=== PATIENT | male | born 1995 | race Caucasian/White ===

== ENCOUNTER 2018-02-16 16:45 | Emergency (ER) | payer OTHER ==
[~2018-02-16] VITALS: Ht 170.2 cm; Wt 117.0 kg
[2018-02-16 16:49] VITALS: Ht 170.2 cm; Wt 117.0 kg
[2018-02-16 18:06] LABS: BASOPHIL % 0.4 % (0-2); PLATELET COUNT 258 x10^3mcL (130-400); RED CELL DISTRIBUTION WIDTH 13.1 % (11.5-14.5)
[2018-02-16 18:16] LABS: CALCIUM 8.7 mg/dL (8.5-10.1); CARBON DIOXIDE 29.2 mmol/L (21-32); CHLORIDE SERUM 103 mmol/L (98-107); CREATININE SERUM 0.7 mg/dL (0.7-1.3); GFR1 > 60 mL/min; GLUCOSE SERUM 99 mg/dL (74-106); POTASSIUM SERUM 3.6 mmol/L (3.5-5.1); SODIUM SERUM 140 mmol/L (136-145)
[2018-02-16 18:29] LABS: ALKALINE PHOSPHATASE 83 U/L (46-116); ALT/SGPT 84 U/L (16-63); AST/SGOT 29 U/L (15-37); BILIRUBIN TOTAL 0.28 mg/dL (0.20-1.00); T4(THYROXINE) 8.7 ug/dL (4.7-13.3); TOTAL PROTEIN, SERUM 7.7 g/dL (6.4-8.2)
[2018-02-16 18:32] LABS: microscopic required? NO
[2018-02-16 18:51] LABS: UA SPECIFIC GRAVITY >=1.030 (1.005-1.035); urine erythrocyte NEGATIVE (NEGATIVE)
[2018-02-16 18:58] LABS: AMPHETAMINE QUAL UR NONE DETECTED (See below)
[2018-02-16 19:53] VITALS: BP 127/85
== END 2018-02-16 19:53 | disposition home or self-care (01) ==
LOC: ED 16:45
PROVIDERS: Emergency Medicine
DX: R55 Syncope and collapse (principal); R42 Dizziness and giddiness; R00.2 Palpitations; R51 Headache
CPT/HCPCS: 36415; 82962